=== PATIENT | male | born 1965 | race Caucasian/White ===

== ENCOUNTER → 2021-06-22 | Outpatient (CLI) | payer OTHER ==
--- NOTE | 2021-06-22 13:59 | KCIC ---
EXAM: Cervical spine, flexion and extension. HISTORY: Pain and crunching. COMPARISON: 11/06/2006. FINDINGS: Flexion and extension views as well as moderate obtained. There is instrumented intraspinal fusion and interbody fusion with bony bridging at C5-C7. There is minimal anterolisthesis of C2 on C 3 which increases with flexion. There is also minimal anterolisthesis of C4 on C5 with flexion. There is degenerative endplate remodeling with anterior predominant osteophytosis at C3-C4 and C4-C5. Ther e is multilevel facet arthropathy. IMPRESSION: 1. Instrumented fusion at C5-C7. 2. Minimal anterolisthesis of and C2 on C3 which increases with flexion and minimal anterolisthesis o f C4 on C5 during flexion. 3. Degenerative endplate remodeling and facet arthropathy, predominantly at C3-C5. Electronically signed by: Richa Avendano MD (06/22/2021 1:57 PM) [id number]
== END ==
LOC: KCIC 13:23
PROVIDERS: ATTEND Neurological Surgery
DX: M48.8X2 Other specified spondylopathies, cervical region (principal); M25.78 Osteophyte, vertebrae; M54.2 Cervicalgia; Z98.1 Arthrodesis status
CPT/HCPCS: 72040